=== PATIENT | male | born 1995 ===

== ENCOUNTER 2024-06-29 15:54 | Emergency (ER) | payer BC ==
[~2024-06-29] VITALS: Ht 170.2 cm; Wt 84.1 kg
[2024-06-29 15:59] VITALS: TEMP 98.2
[2024-06-29 16:43] VITALS: BP 158/82; PULSE 74; RESP 16; O2SAT 98
[2024-06-29] MEDS ORDERED: FLUORESCEIN SODIUM 1 MG STRIP ONE (16:58)
[2024-06-29] MEDS ORDERED: SULF15DR26 OS (17:15)
[2024-06-29] MEDS ORDERED: ERYT3.5O8 OS (17:15)
[2024-06-29] MEDS ORDERED: ACET-2080 PO (17:15)
[2024-06-29] MEDS: ACETAMINOPHEN/CODEINE 300-30 MG TABLET PO ONE (17:25)
[2024-06-29] MEDS: ERYTHROMYCIN 0.5% 3.5 GM TUBE OPHTHALMIC OINTMENT OS ONE (17:25)
== END 2024-06-29 17:45 | disposition home or self-care (01) ==
LOC: EMS 15:54
DX: S05.12XA Contusion of eyeball and orbital tissues, left eye, initial encounter (principal); H53.8 Other visual disturbances; X58.XXXA Exposure to other specified factors, initial encounter; Y93.72 Activity, wrestling; Y92.89 Other specified places as the place of occurrence of the external cause; Y99.8 Other external cause status
CPT/HCPCS: 99283